=== PATIENT | male | born 1940 | race Caucasian/White ===

== ENCOUNTER 2019-08-02 09:37 | Emergency (ER) | payer MEDICARE, BC ==
[2019-08-02 09:48] VITALS: BP 173/89
--- NOTE | 2019-08-02 10:21 | UC ---
Upper Extremity HPI - HPI Summary HPI Summary: patient slipped getting out of his truck 3 days ago. His feet had just touched the ground when he slipped, landed on L shoulder and had immediate pain but was able to get up. Since fall his shoulder pain has worsened and now he has difficulty raising arm he has tried ibuprofen with little relief - History of Current Complaint Chief Complaint: UCUpperExtremity Stated Complaint: FELL SHOULDER INJURY Time Seen by Provider: 08/02/19 09:51 Hx Obtained From: Patient Onset/Duration: Sudden Onset Severity Initially: Moderate Severity Currently: Moderate Pain Intensity: 7 Location Of Pain: Is Discrete @ - L shoulder Character: Sharp, Stiffness Aggravating Factor(s): Movement, Abduction Alleviating Factor(s): OTC Meds, Rest - Allergies/Home Medications Allergies/Adverse Reactions: Allergies Allergy/AdvReac Type Severity Reaction Status Date / Time No Known Allergies Allergy Verified 08/02/19 09:48 Home Medications: Home Medications Amlodipine Besylate 10 mg PO QPM 05/07/12 [History Confirmed 05/28/15] Aspirin [Aspir 81] 81 mg PO QPM 05/07/12 [History Confirmed 05/28/15] Famotidine 10 mg PO PRN 05/07/12 [History Confirmed 05/28/15] Vitamin B Complex/Folic Acid [Vitamin B Complex Tablet] 1 tab PO PRN 05/07/12 [ History Confirmed 05/28/15] Vitamin E 400 unit PO QPM 05/07/12 [History Confirmed 05/28/15] Garlic 1 cap PO 08/24/14 [History Confirmed 05/28/15] Multivitamin [Multivitamins] 1 cap PO 08/24/14 [History Confirmed 05/28/15] Ibuprofen TAB* [Motrin TAB* 400 MG] 650 mg PRN 05/28/15 [History Confirmed 05/28] Meloxicam [Mobic] 15 mg PO DAILY PRN #30 tab 12/13/15 [Rx] PMH/Surg Hx/FS Hx/Imm Hx Previously Healthy: Yes - Surgical History Surgical History: Yes Surgery Procedure, Year, and Place: bilateral Hips replaced 2008 and 2009, hernia repair, ureteral stent rt, excision skin ca, [facility]..TONSILITIS - Family History Known Family History: Positive: Hypertension - Social History Occupation: Retired Lives: With Family Alcohol Use: Rare Substance Use Type: None Smoking Status (MU): Never Smoked Tobacco Household Exposure Type: Cigarettes - Immunization History Vaccination Up to Date: Yes Review of Systems All Other Systems Reviewed And Are Negative: Yes Constitutional: Positive: Negative Skin: Positive: Negative. Negative: Bruising Respiratory: Positive: Negative Cardiovascular: Positive: Negative Musculoskeletal: Positive: Decreased ROM - L shoulder Psychological: Positive: Negative Is Patient Immunocompromised?: No Physical Exam Triage Information Reviewed: Yes Appearance: Well-Appearing, No Pain Distress, Well-Nourished Vital Signs: Initial Vital Signs Temp 98.3 F 08/02/19 09:44 Pulse 79 08/02/19 09:44 Resp 18 08/02/19 09:44 BP 173/89 08/02/19 09:44 Pulse Ox 99 08/02/19 09:44 Vital Signs Reviewed: Yes Respiratory Exam: Normal Cardiovascular Exam: Normal Cardiovascular: Positive: RRR Musculoskeletal: Positive: ROM Limited @ - L shoulder - limited abduction no gross deformity, no ecchymosis Neurological Exam: Normal Psychological Exam: Normal Skin Exam: Normal Diagnostics - Radiology No standard instances Radiology Interpretation Completed By: Radiologist Upper Extremity Course/Dx - Differential Dx/Diagnosis Differential Diagnosis/HQI/PQRI: Contusion, Fracture (Open), Strain Provider Diagnosis: Shoulder pain, left Discharge ED - Sign-Out/Discharge Documenting (check all that apply): Patient Departure All imaging exams completed and their final reports reviewed: Yes - Discharge Plan Condition: Good Disposition: HOME Patient Education Materials: Shoulder Pain (ED) Forms: *Work Release Referrals: Sheng Moncada MD [Primary Care Provider] - Gareth Vasquez MD [Medical Doctor] - 1 Day (call tomorrow for follow-up) Additional Instructions: use ibuprofen 600mg every 6 hours as needed for pain - take it with food use sling when not sleeping - Billing Disposition and Condition Condition: GOOD Disposition: Home
== END 2019-08-02 11:15 | disposition home or self-care (01) ==
LOC: UCEAST 09:37
DX: M25.512 Pain in left shoulder (principal); W01.0XXA Fall on same level from slipping, tripping and stumbling without subsequent striking against object, initial encounter; Y92.9 Unspecified place or not applicable; Z79.82 Long term (current) use of aspirin
CPT/HCPCS: 99212; G0463

== ENCOUNTER 2019-11-20 11:00 | Inpatient (IN) ==
[2019-12-14] MEDS ORDERED: Midazolam 5 mg/5 ml VIAL 1 mg/ml 5 ml VIAL (5 mg) ONE (05:47)
[2019-12-14] MEDS ORDERED: Lactated Ringers 1000 ml BAG 1,000 ML IV SCH ×2 (06:00→12:00)
[2019-12-14] MEDS ORDERED: Buffered Lidocaine 1% SYRIN 1 ml INTRADERM ONE ×2 (06:00→06:25)
[2019-12-14] MEDS ORDERED: ceFAZolin 2 GM PREMIX 2 GM/50 ML BAG ONE (06:25)
[2019-12-14] MEDS ORDERED: Propofol 10 MG/ML 20 ML BTL ONE (06:43)
[2019-12-14] MEDS ORDERED: Rocuronium 50 mg VIAL 10 mg/ml 5 ml VIAL (50 mg) ONE ×3 (06:43→10:21)
[2019-12-14] MEDS ORDERED: fentaNYL 100 mcg/2 ml 50 MCG/ML VIAL ONE ×2 (06:43→11:17)
[2019-12-14] MEDS ORDERED: Lidocaine 2% PF 5 ML VIAL ONE (06:44)
[2019-12-14] MEDS ORDERED: Midazolam 2 mg/2 ml VIAL 1 mg/ml 2 ml VIAL (2 mg) ONE (06:49)
[2019-12-14] MEDS ORDERED: ROPIVACAINE 5 MG/ML 30 ML BTL (0.5%) ONE (07:12)
[2019-12-14] MEDS ORDERED: Vancomycin 1,000 MG VIAL ONE ×2 (07:58→09:58)
[2019-12-14] MEDS ORDERED: Phenylephrine 40 mcg/mL 10mL (400mcg) SYRINGE ONE (08:38)
[2019-12-14] MEDS ORDERED: Dexamethasone IV 4 MG/ML VIAL 1 ml VIAL ONE (08:38)
[2019-12-14] MEDS ORDERED: Ondansetron 4 mg VIAL 2 MG/ML 2 ml VIAL ONE (08:38)
[2019-12-14] MEDS ORDERED: EPHEDrine (Pressors) 50 MG/ML VIAL ONE (08:38)
[2019-12-14] MEDS ORDERED: Sterile Water for Inj 10 ML ONE (08:39)
[2019-12-14] MEDS ORDERED: Gelfoam 12-7 ADSORBABL SPONGE ONE (08:51)
[2019-12-14] MEDS ORDERED: Gelfoam Sponge SIZE 100 SPONGE ONE (08:51)
[2019-12-14] MEDS ORDERED: Acetaminophen IV 1 GM/100ML 100 ML ONE (09:32)
[2019-12-14] MEDS ORDERED: diPHENhydraMINE 25 mg TAB PO PRN (11:36)
[2019-12-14] MEDS ORDERED: Magnesium Hydroxide LIQ 30 ML UDC PO PRN (11:36)
[2019-12-14] MEDS ORDERED: Ondansetron ODT 4 mg TAB 4 MG TAB PO PRN (11:36)
[2019-12-14] MEDS ORDERED: Morphine 2 MG/ML SYRINGE IV PRN (11:36)
[2019-12-14] MEDS ORDERED: diPHENhydraMINE IV 50 MG/ML 1 ml VIAL (BENADRYL) IV PRN (11:36)
[2019-12-14] MEDS ORDERED: Ondansetron 4 mg VIAL 2 MG/ML 2 ml VIAL IV PRN (11:36)
[2019-12-14] MEDS ORDERED: Lactulose 30 ml UDC PO PRN (11:36)
[2019-12-14] MEDS ORDERED: oxyCODONE/Acetamin 5/325 mg TAB ONE (12:45)
[2019-12-14] MEDS: oxyCODONE/Acetamin 5/325 mg TAB PO PRN (12:46)
[2019-12-14] MEDS: ceFAZolin 1 GM ADVAN 1 GM in NS 0.9% 50 ML 50 ML IVPB SCH (17:42)
[2019-12-14] MEDS: Magnesium Hydroxide LIQ 30 ML UDC PO SCH (20:16)
[2019-12-15] MEDS ORDERED: Polyethylene Glycol 3350 17 GM PACKET PO PRN (00:01)
[2019-12-15] MEDS: ceFAZolin 1 GM ADVAN 1 GM in NS 0.9% 50 ML 50 ML IVPB SCH ×2 (00:50→09:01)
[2019-12-15 08:52] LABS: Hematocrit 38 % (42-52); Hemoglobin 13.3 g/dL (14.0-18.0); Mean Platelet Volume 8.5 fL (7.4-10.4); Platelet Count 198 10^3/uL (150-450)
[2019-12-15] MEDS ORDERED: Vitamin THERAPEUTIC TAB PO SCH (09:00)
[2019-12-15 09:09] LABS: BUN/Creatinine Ratio 21.1 (8-20); Calcium 8.2 mg/dL (8.6-10.3); EGFR African American 98.2 (>60); EGFR Non-African American 81.2 (>60); Potassium 3.9 mmol/L (3.5-5.0)
[2019-12-15] MEDS: oxyCODONE/Acetamin 5/325 mg TAB PO PRN (10:31)
[2019-12-15 11:43] VITALS: BP 127/58
[2019-12-15] MEDS: Magnesium Hydroxide LIQ 30 ML UDC PO SCH (11:48)
[2019-12-15] MEDS ORDERED: Aspirin EC 81 mg TAB.EC (enteric coated) PO SCH (12:00)
== END 2019-12-15 12:45 | disposition home health service (06) | DRG 483 ==
LOC: AA 12-14 05:57 → SSU 12-14 13:06
PROVIDERS: ADMIT Orthopaedic Surgery; ATTEND Orthopaedic Surgery

== ENCOUNTER 2022-01-10 13:25 | Inpatient (IN) ==
[2022-01-10] MEDS: Norepinephrine 16MCG/ML BAGD5W 4,000 MCG/250 ML BAG IV SCH ×3 (13:26→20:56)
[2022-01-10] MEDS ORDERED: Heparin 1,000 UNIT/ML 10 ml (10,000 UNITS) CATHLAB/DIALYSIS ONE ×2 (13:36→15:11)
[2022-01-10] MEDS ORDERED: Midazolam 5 mg/5 ml VIAL 1 mg/ml 5 ml VIAL (5 mg) ONE (13:36)
[2022-01-10] MEDS ORDERED: Heparin 2 UNITS/ML 1000 mls 3,000 ML IV ONE (13:36)
[2022-01-10] MEDS ORDERED: nitroGLYCERIN DRIP 25,000 MCG/250 ML BTL ONE (13:36)
[2022-01-10] MEDS ORDERED: fentaNYL 100 mcg/2 ml 50 MCG/ML VIAL ONE ×4 (13:36→18:18)
[2022-01-10] MEDS ORDERED: niCARdipine 0.1MG/ML IVPREMIX 20 MG/200 ML BAG IV ONE (13:37)
[2022-01-10] MEDS ORDERED: Etomidate 40 mg/20 ml (2 MG/ML) 20 ml VIAL (40 mg) ONE (13:39)
[2022-01-10] MEDS ORDERED: Rocuronium 50 mg VIAL 10 mg/ml 5 ml VIAL (50 mg) ONE (13:39)
[2022-01-10] MEDS ORDERED: Lidocaine 1% MPF 5 ML VIAL ONE (13:42)
[2022-01-10] MEDS ORDERED: Heparin 2 UNITS/ML 1000 mls 1,000 ML IV ONE (13:46)
[2022-01-10 13:51] LABS: ABS Basophils 0.1 10^3/ul (0-0.2); ABS Eosinophils 0.2 10^3/ul (0-0.6); ABS Lymphocytes 3.7 10^3/ul (1.0-4.8); ABS Monocytes 0.6 10^3/ul (0-0.8); ABS Neutrophils 11.1 10^3/ul (1.5-7.7); Eosinophil % 1.4 %; Hematocrit 46 % (42-52); Hemoglobin 14.8 g/dL (14.0-18.0); Lymphocyte % 23.4 %; Mean Corpuscular HGB Conc 32 g/dL (31-36); Mean Corpuscular Hemoglobin 31 pg (27-31); Mean Corpuscular Volume 97 fL (80-94); Mean Platelet Volume 8.9 fL (7.4-10.4); Nucleated Red Blood Cells % 0.1; Platelet Count 175 10^3/uL (150-450); Red Blood Count 4.72 10^6 /uL (4.18-5.48); Red Cell Distribution Width 14 % (10-15); White Blood Count 15.6 10^3/uL (3.5-10.8)
[2022-01-10] MEDS ORDERED: Heparin - STEMI 5,000 UNITS/ML 1 ml VIAL IV ONE (14:06)
[2022-01-10 14:09] LABS: Activated Partial Thrombo Time 26.3 seconds (26.0-38.0); INR 1.16 (0.89-1.11)
[2022-01-10 14:15] LABS: High Sens Troponin Baseline 338 pg/mL (<20)
[2022-01-10 14:30] LABS: ALT 78 U/L (7-52); Albumin 3.6 g/dL (3.2-5.2); Albumin/Globulin Ratio 1.6 (1-3); Alkaline Phosphatase 57 U/L (35-149); Blood Urea Nitrogen 28 mg/dL (6-24); CO2 Carbon Dioxide 17 mmol/L (22-32); Calcium 8.6 mg/dL (8.6-10.3); Chloride 103 mmol/L (101-111); Globulin 2.2 g/dL (2-4); Glucose 287 mg/dL (70-100); Sodium 141 mmol/L (135-145); Total Protein 5.8 g/dL (6.4-8.9); eGFR CKD-EPI 54.8 (>60)
[2022-01-10 14:34] LABS: Anion Gap 21 mmol/L (2-11)
[2022-01-10] MEDS ORDERED: Amiodarone 360 MG IVPREMIX 0 MG/0 ML BAG IV ONE (14:52)
[2022-01-10] MEDS ORDERED: Eptifibatide IV (Load dose) 2 MG/ML 10 ml VIAL ONE ×2 (15:08→15:56)
[2022-01-10] MEDS ORDERED: Lactated Ringers 1000 ml BAG 1,000 ML IV ONE ×2 (15:12→19:06)
[2022-01-10] MEDS ORDERED: Norepinephrine 16MCG/ML BAG NS 4,000 MCG/250 ML BAG IV ONE (15:14)
[2022-01-10] MEDS ORDERED: Iohexol 350 (CONTRAST) 100 ML PAK IV ONE ×2 (15:15→15:37)
[2022-01-10] MEDS ORDERED: Heparin DRIP 25,000 UNITS BAG 25,000 UNITS/500 ML BAG ONE (15:56)
[2022-01-10 16:08] LABS: POC SO2 96 %
[2022-01-10] MEDS ORDERED: Perflutren Lipid Microsphere 3 ML VIAL ONE (16:22)
[2022-01-10 17:05] LABS: ALT 94 U/L (7-52); Albumin 3.5 g/dL (3.2-5.2); Albumin/Globulin Ratio 1.7 (1-3); Alkaline Phosphatase 58 U/L (35-149); Blood Urea Nitrogen 26 mg/dL (6-24); CO2 Carbon Dioxide 23 mmol/L (22-32); Calcium 7.6 mg/dL (8.6-10.3); Chloride 103 mmol/L (101-111); Globulin 2.1 g/dL (2-4); Glucose 286 mg/dL (70-100); Magnesium 1.6 mg/dL (1.9-2.7); Sodium 138 mmol/L (135-145); Total Protein 5.6 g/dL (6.4-8.9); eGFR CKD-EPI 62.9 (>60)
[2022-01-10 17:11] LABS: POC SO2 71 %
[2022-01-10 17:25] LABS: Anion Gap 12 mmol/L (2-11)
[2022-01-10] MEDS ORDERED: fentaNYL INFUSION 50 mcg/mL VL 2,500 MCG/50 ML VIAL IV SCH (18:00)
[2022-01-10] MEDS ORDERED: Heparin DRIP 25,000 UNITS BAG 25,000 UNITS/500 ML BAG IV SCH (18:15)
[2022-01-10] MEDS ORDERED: Pantoprazole VIAL 40 MG VIAL IV SCH (18:30)
[2022-01-10] MEDS ORDERED: Magnesium Sulfate 2 gm BAG 2 GM/50 ML BAG IVPB ONE (18:43)
[2022-01-10 18:50] LABS: Venous Bicarbonate HCO3 15.1 mmol/L (24-28)
[2022-01-10 19:00] LABS: Urine Appearance Slightly Cloudy; Urine Color Red
[2022-01-10 19:01] LABS: Urine Bilirubin Negative (Negative); Urine Blood 3+ (Large) (Negative); Urine Glucose 1+ (250mg/dL) (Negative); Urine Ketones Negative (Negative); Urine Nitrite Positive (Negative); Urine Protein 2+ (100 mg/dL) (Negative); Urine Specific Gravity <=1.005 (1.005-1.030); Urine Urobilinogen 0.2 (Negative) (Negative)
[2022-01-10 19:01] LABS: PCO2 Arterial 58 mmHg (35-45); PO2 Arterial 76 mmHg (80-100)
[2022-01-10] MEDS ORDERED: Sodium Bicarbonate 8.4% SYR 50 ml SYRINGE IV ONE ×2 (19:06→19:10)
[2022-01-10] MEDS ORDERED: Calcium CHLORIDE 10% SYRINGE 1 GM/10 ML IV ONE (19:07)
[2022-01-10] MEDS ORDERED: Sodium Bicarbonate 8.4% SYR 50 ml SYRINGE ONE (19:09)
[2022-01-10] MEDS ORDERED: Calcium CHLORIDE 10% SYRINGE 1 GM/10 ML ONE (19:12)
[2022-01-10 19:27] LABS: Urine Bacteria Absent (Absent); Urine Red Blood Cell 3+(>10/hpf) (Absent); Urine Squamous Epithelial Cell Present (Absent); Urine White Blood Cell 3+(>20/hpf) (Absent)
[2022-01-10 19:34] LABS: Hematocrit 32 % (42-52); Hemoglobin 10.4 g/dL (14.0-18.0); Mean Corpuscular HGB Conc 33 g/dL (31-36); Mean Corpuscular Hemoglobin 32 pg (27-31); Mean Corpuscular Volume 96 fL (80-94); Mean Platelet Volume 8.8 fL (7.4-10.4); Platelet Count 192 10^3/uL (150-450); Red Blood Count 3.28 10^6 /uL (4.18-5.48); Red Cell Distribution Width 14 % (10-15); White Blood Count 19.7 10^3/uL (3.5-10.8)
[2022-01-10 19:44] LABS: Potassium, Whole Blood 3.3 mmol/L (3.4-4.5)
[2022-01-10 19:46] LABS: Potassium Redraw 3.4 mmol/L (3.5-5.0)
[2022-01-10] MEDS ORDERED: KCL 20 MEQ/100 ML IVPREMIX 20 MEQ/100 ML BAG IV ONE (19:53)
[2022-01-10] MEDS ORDERED: Pantoprazole VIAL 40 MG VIAL IV ONE (20:00)
[2022-01-10] MEDS ORDERED: Pantoprazole 80 mg in NS BAG 80 MG/250 ML BAG IV SCH (20:00)
[2022-01-10 20:15] LABS: Calcium 6.8 mg/dL (8.6-10.3); Potassium 3.4 mmol/L (3.5-5.0); eGFR CKD-EPI 52.9 (>60)
[2022-01-10] MEDS ORDERED: NS 0.9% 1,000 ML IV ONE (20:15)
[2022-01-10] MEDS ORDERED: Midazolam 10 mg/10 ml VIAL 1 mg/ml 10 ml VIAL (10 mg) ONE (20:28)
[2022-01-10 20:37] LABS: ABS Lymphocytes 1.3 10^3/ul (1.0-4.8); ABS Neutrophils 17.5 10^3/ul (1.5-7.7); Eosinophil % 0.1 %; Lymphocyte % 6.3 %
[2022-01-10] MEDS: EPINEPHRINE 1 MG/ML 1 MG in D5W 250 ML BAG 249 ML IV SCH ×2 (20:41→21:40)
[2022-01-10 21:25] LABS: PCO2 Arterial 60 mmHg (35-45); PO2 Arterial 113 mmHg (80-100)
[2022-01-10] MEDS ORDERED: Midazolam 5 mg/5 ml VIAL 1 mg/ml 5 ml VIAL (5 mg) IV SLOW PU ONE ×2 (21:45→22:21)
[2022-01-10] MEDS ORDERED: Midazolam 2 mg/2 ml VIAL 1 mg/ml 2 ml VIAL (2 mg) ONE (21:47)
[2022-01-10] MEDS ORDERED: Chlorhexidine MOUTHWASH 0.12% 15 ML UDC SWISH SPIT SCH (22:00)
[2022-01-10] MEDS ORDERED: Midazolam 50 MG VIAL IV DRIP 50 ML IV SCH (22:00)
[2022-01-10] MEDS ORDERED: Midazolam 5 mg/5 ml VIAL 1 mg/ml 5 ml VIAL (5 mg) IV SLOW PU PRN (22:47)
[2022-01-11 00:13] VITALS: BP 51/28
== END 2022-01-10 22:57 | disposition expired | DRG 270 ==
LOC: ED 13:25 → EDHOLD 14:04 → ICU 16:56
PROVIDERS: ADMIT Internal Medicine Critical Care Medicine; ATTEND Internal Medicine Critical Care Medicine